=== PATIENT | female | born 1960 | race Caucasian/White ===

== ENCOUNTER 2016-06-19 20:10 | Emergency (ER) | payer OTHER ==
--- NOTE | ~2016-06-19 | CT4 ---
[facility] A Service of [facility] RADIOLOGY TEXT RESULTS PATIENT: GERTRUDE REILLY LOCATION: SED : 61 UNIT #: [id number] AGE: [address]: Devon Regalado MD SEX: F ORDER DR: [id number] [place] [id number] E MR#: [id number] Acc #: [id number] NAME: GERTRUDE REILLY : 1960 SEX: F STUDY DATE/TIME: 06/19/2016 21:45 UNIT: SED ROOM: STUDY DESCRIPTION: CT Abd and Pelv Wo Cont Attending Physician: Devon Regalado M.D. Ordering Physician: Devon Regalado M.D. Primary Care Physician: Wen Omer M.D. MEDICAL IMAGING REPORT This report is preliminary unless electronic signature is present. EXAM CT abdomen and pelvis, noncontrast, 06/19/2016 HISTORY 56-year-old female in the ED complaining of 6-week history of flank pain. Elevated white blood cell count is noted. TECHNIQUE CT examination of the abdomen and pelvis without oral or IV contrast using kidney stone protocol. This CT exam was performed with one or more of the following radiation dose reduction techniques: automatic exposure control, adjustment of mA and/or kV according to patient size, and iterative reconstruction. COMPARISON CT stone study, 09/03/2015. FINDINGS ABDOMEN: Both kidneys, both ureters and the urinary bladder are normal in noncontrast CT appearance. No visible nephrolithiasis or evidence of urinary obstruction. Cholecystectomy. No bile duct dilatation. Liver, pancreas and spleen are within normal limits. There is a moderately large upper right paramedian ventral hernia containing omental fat. This has increased slightly in size since 06/04/2015. Mild scattered sigmoid diverticulosis. Small bowel and colon are otherwise normal in caliber and appearance, as imaged. The appendix is [facility] RADIOLOGY TEXT RESULTS PATIENT: GERTRUDE REILLY LOCATION: SED : 61 UNIT #: [id number] AGE: [address]: Devon Regalado MD SEX: F ORDER DR: normal. Normal-caliber abdominal aorta. PELVIS FINDINGS: Hysterectomy. Bladder and rectum are negative. IMPRESSION 1. No acute abnormality within the abdomen or pelvis. No visible nephrolithiasis or evidence of urinary obstruction. 2. Cholecystectomy and hysterectomy. 3. Mild sigmoid diverticulosis. Normal appendix. 4. Moderately large right upper quadrant paramedian abdominal wall hernia containing abdominal fat and omental vessels. This has enlarged since the previous study of 09/03/2015. Dictated by... Temo Perla M.D. THIS IS AN ELECTRONICALLY VERIFIED REPORT Temo Perla M.D. at 06/20/2016 5:58 AM CLARENCE/manolo TD: 06/19/2016 23:28 JOB #: [id number] MEDICAL IMAGING REPORT Page 1 of 1
--- NOTE | ~2016-06-19 | CR63 ---
[facility] A Service [facility] RADIOLOGY TEXT RESULTS PATIENT: GERTRUDE REILLY LOCATION: SED : 61 UNIT #: [id number] AGE: [address]: Devon Regalado MD SEX: F ORDER DR: [id number] [place] [id number] E MR#: [id number] Acc #: [id number] NAME: GERTRUDE REILLY : 1960 SEX: F STUDY DATE/TIME: 06/19/2016 20:32 UNIT: SED ROOM: STUDY DESCRIPTION: CR Chest 2 View Attending Physician: Devon Regalado M.D. Ordering Physician: Devon Regalado M.D. Primary Care Physician: Wen Omer M.D. MEDICAL IMAGING REPORT This report is preliminary unless electronic signature is present. EXAM Chest x-ray 2 views HISTORY Cough, short of air, fever, headache right-sided, starting today, patient smokes a half pack a day. COMMENT 2 views of the chest are reviewed. COMPARISON 02/12/2016 FINDINGS The patient has had a previous cholecystectomy. No pleural effusion. Mild thoracic degenerative changes. Heart size normal. Interval improvement in the appearance of the chest since prior with apparent resolution. Congestive failure seen on the previous study. No acute-appearing congestive failure on current study. No acute appearing parenchymal infiltrate or pneumothorax. Probably some mild interstitial edema at the right greater than left lung base. IMPRESSION Suspect some mild basilar interstitial edema, right greater than left. Otherwise, no active disease is seen in the chest. On comparison to a film from 02/12/2016, since that time, congestive failure has resolved. Dictated by... [facility] A Service [facility] RADIOLOGY TEXT RESULTS PATIENT: GERTRUDE REILLY LOCATION: SED : 61 UNIT #: [id number] AGE: [address]: Devon Regalado MD SEX: F ORDER DR: Ingrid A. Crecelius, M.D. THIS IS AN ELECTRONICALLY VERIFIED REPORT Ingrid Fraga M.D. at 06/19/2016 10:57 PM SAC/to TD: 06/19/2016 22:47 JOB #: [id number] MEDICAL IMAGING REPORT Page 1 of 1
[~2016-06-19 20:10] MED LIST: BACTRIM DS TABL1 TA1 PO; CELEXA10 MG PO; CELEXA20 MG PO; FLAGYL PO; FLEXERIL10 MG PO; HYCODAN60 ML 5MG/ PO; HYDROCODON-ACE1 EAC7 PO; HYDROCODON-ACE118 ML PO; HYDROCODONE-APA1 T61 PO; MACROBID100 M1 PO; MOBIC PO; NAPROXEN PO; NITROFURANTOIN100 M3 PO; NO MEDICATIONS; PHENERGAN25 M1 PO; PREDNISONE PO; PREMARIN VAG CR45 GM MC; PRIMIDONE50 MG PO; SUDAFED; TOPAMAX PO; VAGIFEM10 MCG; VICODIN 5-3001 EACH PO; ZYRTEC10 M1 PO
[2016-06-19 20:50] LABS: INFLUENZA A NEG (NEG); INFLUENZA B NEG (NEG)
[2016-06-19 21:02] LABS: BASOPHIL% 0.3 % (0-2.5); DIFF IND NO; EOSINOPHIL# 0.2 X10e3 (0-0.7); EOSINOPHIL% 1.1 % (0.0-7.0); HEMATOCRIT 43.3 % (35.0-45.0); HEMOGLOBIN 14.4 gm/dL (12.0-16.0); LYMPHOCYTE# 0.4 X10e3 (1.0-3.5); LYMPHOCYTE% 2.8 % (17.0-45.0); MEAN CELL VOLUME 87.3 FL (83-96); MEAN CORPUSCULAR HGB CONC 33.3 g/dL (30-36); MEAN PLATELET VOLUME 7.7 FL (6.5-11.5); MONOCYTE# 0.4 X10e3 (0-1.0); MONOCYTE% 2.8 % (3.0-12.0); NEUTROPHIL# 13.6 X10e3 (1.5-7.1); PLATELET COUNT 345 X10e3 (140-420); RED BLOOD COUNT 4.96 X10e (3.90-5.30); WHITE BLOOD COUNT 14.6 X10e3 (4.0-10.5)
[2016-06-19 21:05] LABS: ALBUMIN SERUM 3.9 g/dL (3.5-5.0); BILIRUBIN, DIRECT 0.1 mg/dL (0.0-0.2); BILIRUBIN,INDIRECT 0.4 mg/dL (0.0-0.9); BILIRUBIN,TOTAL 0.5 mg/dL (0.2-2.0); BUN/CREATININE RATIO 15.55; CALCIUM SERUM 9.1 mg/dL (8.4-10.2); CREATININE SERUM 0.9 mg/dL (0.6-1.4); POTASSIUM 4.2 mmol/L (3.5-5.1); URINE SOURCE CLEAN CATCH
[2016-06-19 21:07] LABS: URINE APPEARANCE HAZY; URINE BILIRUBIN NEG (NEG); URINE BLOOD TRACE-LYSED (NEG); URINE COLOR YELLOW; URINE GLUCOSE NEG (NORM); URINE KETONE TRACE (NEG); URINE LEUKOCYTE ESTERASE TRACE (NEG); URINE NITRATE NEG (NEG); URINE PROTEIN TRACE (NEG); URINE UROBILINOGEN 0.2 MG/DL (NORM)
[2016-06-19 21:16] LABS: CULTURE INDICATED? NO; MICRO INDICATED? YES; URINE BACTERIA NEG (NEG); URINE SQUAMOUS EPITHELIAL CELL MANY /[HPF]
[2016-06-19 21:17] LABS: URINE MUCUS PRESENT
== END 2016-06-19 23:26 | disposition home or self-care (01) ==
LOC: SED 20:10
PROVIDERS: Emergency Medicine
DX: M54.9 Dorsalgia, unspecified (principal); R50.9 Fever, unspecified; F41.9 Anxiety disorder, unspecified; F17.200 Nicotine dependence, unspecified, uncomplicated; Z87.19 Personal history of other diseases of the digestive system; Z86.79 Personal history of other diseases of the circulatory system; Z90.49 Acquired absence of other specified parts of digestive tract; Z90.710 Acquired absence of both cervix and uterus
CPT/HCPCS: 36415; 71020; 74176; 80048; 80076; 81003; 82550; 83605; 85025; 87040; 87651; 87804; 96361; 96374; 96375; 99284; J0780; J1200; J2270

== ENCOUNTER 2016-06-25 16:40 | Observation (INO) | payer OTHER ==
--- NOTE | ~2016-06-25 | CO ---
Unit #: [id number] #: [id number] Patient: GERTRUDE REILLY [id number] [address] [place], [place] [address] [id number] I MR#: [id number] NAME: GERTRUDE REILLY ROOM: 308 Age: 56 Sex: F Admission Date: 06/26/2016 : 1960 Attending Physician: Nathan Lofton M.D. Primary Care Physician: Wen Omer M.D. Consultation Date: 06/26/2016 CONSULTATION REPORT REASON FOR CONSULT Shortness of breath. HISTORY OF PRESENT ILLNESS This is a pleasant 56-year-old female with extensive history of smoking recently down to one pack every 10 days, emphysema, and essential tremors, who presented to the emergency room at [facility] with shortness of breath and hypokalemia. Patient stated that she has been sick for the last three weeks with different kinds of infection. She stated that she had a UTI, and she was on nitrofurantoin, and then recently she was seen at an urgent care center where she was told that she had pneumonia, and she was placed on some antibiotics that she could not remember the name of. Patient had a fever, chills, and cough last week. However, currently she is just having some rash and shortness of breath but no fever. Upon presentation, patient had a D-dimer that was elevated, but she is allergic to IV dye, so a CT angiogram was not done immediately. Patient received IV steroids for contrast preparation, and she just had her CT angiogram which was negative for pulmonary embolus, and there were no signs of acute infiltrate. However, she has extensive emphysema. PAST MEDICAL HISTORY 1. Hiatal hernia. 2. Intracranial aneurysm. 3. Degenerative joint disease. 4. Essential tremor. 5. Chronic headache. PAST SURGICAL HISTORY 1. Cholecystectomy. 2. Hysterectomy. 3. Tonsillectomy. ALLERGIES Ultram, Elavil, Zofran, IV dye, and radioactive nucleotide for stress test. HOME MEDICATIONS 1. Primidone. 2. Zyrtec. 3. Topamax. 4. Tylenol. Unit #: [id number] #: [id number] Patient: GERTRUDE REILLY FAMILY HISTORY Coronary artery disease and hypertension. SOCIAL HISTORY Patient lives with her . She smokes currently one pack every 10 days but she has an extensive history of smoking. No history of alcohol or drug abuse. REVIEW OF SYSTEMS A 12-point review of systems was obtained and was negative except for what was mentioned in the History of Present Illness. PHYSICAL EXAMINATION GENERAL: Patient is pleasant but slightly anxious. VITAL SIGNS: Temperature 98.1, pulse 79, respiratory rate 20, O2 saturation 97% on room air, and blood pressure 131/71. HEENT: Atraumatic, normocephalic. PERRLA. EOMI. NECK: Supple. No JVD. No lymphadenopathy. CHEST: Decreased breath sounds bilaterally but no wheezing or crackles. HEART: S1 and S2. No murmur, gallops, or rubs. ABDOMEN: Soft, nontender. Bowel sounds are positive. No hepatosplenomegaly. EXTREMITIES: No edema or cyanosis. SKIN: No rashes. CENTRAL NERVOUS SYSTEM: Patient has essential tremor but no focal motor/sensory deficit. DIAGNOSTIC STUDIES LABORATORY: Creatinine 0.7 and chloride 114. White blood count 11.9 and hemoglobin 11.3. IMAGING: CT angiogram showed extensive emphysema but no acute PE or pneumonia. ASSESSMENT 1. Dyspnea. 2. Emphysema/chronic obstructive pulmonary disease. 3. Questionable drug allergy. 4. Chronic anemia. 5. Degenerative joint disease. PLAN 1. Patient is hemodynamically stable on room air. 2. Lower extremity Doppler and CT angiogram excluded any possibility of DVT/PE. 3. Her shortness of breath probably is multifactorial related to chronic emphysema/COPD exacerbated probably by a drug reaction. 4. Will continue patient on bronchodilator. 5. Gentle IV hydration. 6. DVT prophylaxis. I would like to thank Dr. Lofton for allowing me to be part of this patient's care. Dictated by... Karla Ahuja M.D. EA/laura Unit #: [id number] #: [id number] Patient: GERTRUDE REILLY TD: 06/26/2016 20:14 JOB #: [id number] CONSULTATION REPORT Page 1 of 1 X KARLA SUH MD CONSULTATION REPORT
--- NOTE | ~2016-06-25 | HP ---
Unit #: [id number] #: [id number] Patient: GERTRUDE REILLY [id number] [address] [place], [place] [address] [id number] I MR#: [id number] NAME: GERTRUDE REILLY. ROOM: 308 Age: 56 Sex: F Admission Date: 06/25/2016 : 1960 Attending Physician: Mavis Will M.D. Primary Care Physician: Wen Omer M.D. HISTORY AND PHYSICAL REVISED REPORT CHIEF COMPLAINT Shortness of breath and hypokalemia with weakness. HISTORY This pleasant 56-year-old female with essential tremor, DJD, chronic pain, intracranial aneurysm, was transferred from [facility] emergency department for shortness of breath and hypokalemia. The patient states that she was in her usual state of health until three weeks prior to admission when she developed weakness and fatigue. She saw a primary care physician who treated her for a urinary tract infection with Macrodantin. Over the past week notes increasing shortness of breath with exertion but no chest pain. She was thought to have a right lower lobe pneumonia per her report and was placed on antibiotics. Has been experiencing some low grade temperatures and chills, swelling of hands and feet, and reddish appearing stool. Went back to [facility] ER yesterday. A d-dimer was obtained and was elevated. The patient has a IV dye contrast allergy. She states that she is also allergic to radioactive nucleotides, almost after her stress test last Spring at [facility] after a stress test at [facility]. She has received IV dye after premedication for 24 hours with steroids. At this time she declines enteric treatment of a blood thinner unless it is needed. The shortness of breath is with exertion, but she was having a little bit of wheezing last week but that has improved and she denies chest pain with the above, orthopnea or PND. PAST MEDICAL HISTORY 1. Hiatal hernia. 2. Intracranial aneurysm admitted to [facility]. 3. DJD. 4. Essential tremor. 5. Chronic leg and feet pain on Topamax. 6. DJD and back pain which was recently worse. 7. Chronic headache. 8. Cholecystectomy. 9. Hysterectomy. 10. Tonsillectomy. ALLERGIES Ultram, Elavil, Zofran, IV dye, radioactive nucleotide for stress test. Unit #: [id number] #: [id number] Patient: GERTRUDE REILLY HOME MEDICATIONS Primidone, 50 mg p.o.q.h.s.; Zyrtec 10 mg daily as needed; Topamax 25 mg b.i.d.; [place] 7.5 t.i.d. as needed. She uses Premarin vaginal tablets twice a week and Sudafed. FAMILY HISTORY Positive for CAD and hypertension. SOCIAL HISTORY The patient lives with her and smokes 1/2 pack per day of tobacco and does not drink alcohol. REVIEW OF SYSTEMS Notable for weakness, fatigue, and shortness of breath with exertion, hiatal hernia, intracranial aneurysms, chronic headache, increase in back pain, arthritis, essential tremor, chronic foot pain, negative stress test last year, cholecystectomy, hysterectomy, tonsillectomy, tobacco abuse, low grade temperatures. All other systems were reviewed and are negative. PHYSICAL EXAMINATION GENERAL: Pleasant 56-year-old female currently in no acute distress. VITAL SIGNS: Temperature 98.4, pulse 84, respirations 20, O2 saturations 97% on room air, blood pressure 137/78. HEENT: Eyes - PERRLA. Extraocular muscles are intact. Pharynx is benign. NECK: Supple without adenopathy or thyromegaly. CHEST: Clear. Patient had some tenderness over the upper thoracic lower spine and paraspinous muscles. CARDIAC: Normal S1 and S2 without S3, S4 or murmur. ABDOMEN: Bowel sounds are present. No hepatosplenomegaly, tenderness, or masses. RECTAL: Brown stool in the rectal vault. Hemoccult negative. EXTREMITIES: With minimal edema. Pedal pulses are present. Negative Homans sign. Some erythema noted over the toes. NEUROLOGIC: Patient is awake, alert, and oriented. Cranial nerves are intact. Equal strength throughout. DIAGNOSTIC STUDIES LABORATORY STUDIES: Hematocrit 36.5, white blood count is 11.6, normal platelet count. Cardiac markers negative. D-dimer elevated. SMA 12 - potassium 3.6, albumin 2.9, alk phos 173, lactic acid normal. Urinalysis is negative. IMAGING STUDIES: CT of the chest without contrast - COPD, atelectasis in lung bases, unchanged 7 mm noncalcified right middle lung nodule. Linear noncalcified nodule right upper lobe unchanged. CARDIOLOGY STUDIES: EKG - normal sinus rhythm rate 80, normal appearing. ASSESSMENT 1. Complaints of dyspnea with exertion. Patient has underlying COPD. He was found to have elevated D-dimer at [facility] ER, obviously need to rule out PE. 2. Weakness and fatigue. 3. Intracranial aneurysm. 4. Chronic back pain and headaches. 5. Hypokalemia. 6. Possible blood in stool but patient is heme negative currently on Unit #: [id number] #: [id number] Patient: GERTRUDE REILLY exam, although there is no stool in the rectal vault. 7. Essential tremor. 8. Reporting negative cardiac stress test last year at [facility]. 9. Allergy to IV dye and allergic to radioactive nucleotides with stress test. 10. Hypokalemia. 11. Tobacco abuse. PLANS 1. Premedicated with prednisone and Benadryl to obtain CTA of the chest. I did offer the patient a V/Q scan but she declines given that it is a nuclear scan. 2. Check venous Dopplers of the legs. 3. Check thyroid function test, B12 level. Blood cultures are pending. Will check sed rate as well. 4. Replace potassium and check magnesium. 5. Recheck stool for Hemoccult. 6. Old records. 7. I did offer the patient low dose heparin pending CT scan but she decline at this point unless absolutely needed. 8. Combivent. 9. Further workup and consultants depending on above. 10. Will check a BNP and cardiac enzymes. *Faxed to Dr. Will's office on 06/26/16 for medication verification. cd Dictated by Mavis Will M.D. AML/ts TD: 06/26/2016 05:05 JOB #: [id number] HISTORY AND PHYSICAL Page 1 of 1 X Mavis Will MD X HISTORY AND PHYSICAL
--- NOTE | ~2016-06-25 | CT57 ---
[facility] A Service of [facility] RADIOLOGY TEXT RESULTS PATIENT: GERTRUDE REILLY LOCATION: [facility] 308-01 : 62 UNIT #: [id number] AGE: [address]: Nahtan Lofton MD SEX: F ORDER DR: [id number] [address] [address] [id number] E MR#: [id number] Acc #: [id number] NAME: GERTRUDE REILLY. : 1960 SEX: F STUDY DATE/TIME: 06/25/2016 16:47 UNIT: SED ROOM: STUDY DESCRIPTION: CT Chest Wo Cont Attending Physician: Dieter Duaret M.D. Ordering Physician: Fernando Velasco M.D. Primary Care Physician: Wen Omer M.D. MEDICAL IMAGING REPORT This report is preliminary unless electronic signature is present. EXAM CT of the chest. DATE OF EXAM 07/03/2016 HISTORY Short of air, upper abdomen pain since Friday, when here for same. Hand/foot swelling. Back pain, spine shooting 2 days. Dizzy. Gallbladder, TA, hysterectomy. TECHNIQUE CT of the chest performed without administration of intravenous contrast. This CT exam was performed with one or more of the following radiation dose reduction techniques: automatic exposure control, adjustment of mA and/or kV according to patient size, and iterative reconstruction. COMPARISON 09/03/2015 FINDINGS Thyroid unremarkable. No axillary, mediastinal or hilar adenopathy. Small and stable nodes in these regions. Heart normal in size. No pleural effusions. Visualized portions of liver unremarkable. Status post cholecystectomy. No biliary ductal dilatation is seen. Spleen, pancreas, adrenal glands, upper renal poles, esophagus, visualized stomach, small bowel and colon unremarkable. Pulmonary parenchyma shows extensive centrilobular emphysema. Tiny subcentimeter nodule adjacent to the anterior right heart border in the medial anterior right upper lobe unchanged from prior studies and favored to represent an area of somewhat linear scarring. 7 mm subpleural nodule in the lateral right middle lobe unchanged from the study dating to 2011, [facility] A Service of [facility] RADIOLOGY TEXT RESULTS PATIENT: GERTRUDE REILLY LOCATION: A 308-01 : [birth year] UNIT #: [id number] AGE: [address]: Nathan Lofton MD SEX: F ORDER DR: felt to be benign in nature. Minimal dependent atelectasis lung bases. No dense airspace disease. No suspicious nodule. Atherosclerotic arterial calcifications. The bony structures show no acute abnormality. IMPRESSION 1. Extensive centrilobular emphysema throughout the lungs. There is no evidence of acute infectious or inflammatory disease. 2. Some areas of dependent atelectasis at lung bases. 3. 7 mm noncalcified subpleural pulmonary nodule lateral right middle lobe. No change from studies dating to 2011 and felt to be benign in nature. There is a linear noncalcified nodule in the anteromedial right upper lobe adjacent to the anterior right heart measuring about 3-4 mm in diameter. No change from August 2015, though more conspicuous on the current examination. I believe it was faintly present in 2012 as well. It is felt to be benign in nature. 4. No acute abnormality seen in the upper abdomen. Postoperative changes of prior cholecystectomy. Dictated by... Devon Frank M.D. THIS IS AN ELECTRONICALLY VERIFIED REPORT Devon Frank M.D. at 06/26/2016 6:26 PM Logan TD: 06/25/2016 20:30 JOB #: [id number] MEDICAL IMAGING REPORT Page 1 of 1
--- NOTE | ~2016-06-25 | DS ---
Unit #: [id number] #: [id number] Patient: GERTRUDE REILLY [id number] [address] [place], [place] [address] [id number] I MR#: [id number] NAME: GERTRUDE REILLY. ROOM: 308 Age: 56 Sex: F Admission Date: 06/26/2016 : 1960 Discharge Date: 06/27/2016 Attending Physician: Nathan Lofton M.D. Primary Care Physician: Wen Omer M.D. DISCHARGE SUMMARY ADMITTED DIAGNOSES 1. Acute hypoxic respiratory failure. 2. Hypokalemia. HISTORY OF PRESENT ILLNESS The patient is a 56-year-old lady with a past medical history of degenerative joint disease, chronic pain, tremor, intracranial aneurysm which she mentions repaired. She presented to [facility] emergency room with a chief complaint of shortness of breath. Her d-dimer was elevated up to 500 when she initially presented to the hospital. HOSPITAL COURSE She refused any anticoagulation. She was allergic to IV contrast dye. She was premedicated. Dr. Rad Ahuja of pulmonary was consulted. The CT angiogram of the chest came back negative for pneumonia or PE. It showed extensive emphysematous changes. She is known smoker. I spoke with her at length and counseled her to quit smoking. Her potassium on initial hospitalization was 2.4. It was replaced and is 3.9 today. I am requesting her to follow up with her primary care physician and get a repeat BMP done in three days. She is doing clinically better and she will be discharged home. PHYSICAL EXAMINATION VITALS: Temperature 98.4, pulse rate 95, respiratory rate 18, blood pressure 136/78. GENERAL: Alert and oriented times three, lying in bed in no acute distress. HEENT: Normocephalic, atraumatic. No icterus. Pupils equally round and reactive to light and accommodation. Extraocular muscles intact. NECK: Supple. No jugular venous distension. HEART: S1 and S2. Regular rhythm. CHEST: Bilateral equal entry, clear to auscultation. ABDOMEN: Soft and nontender. EXTREMITIES: No edema. Normal breath sounds. DISCHARGE MEDICATIONS 1. Topamax 25 mg b.i.d. 2. Primidone 50 mg at bedtime. 3. Zyrtec 10 mg p.o. p.r.n. 4. Hydrocodone/Tylenol 7.5/325 mg 1 tablet p.o. t.i.d. p.r.n. pain. We are not giving any new prescription. She will get her own narcotics from her primary care physician. 5. KCL 10 mEq p.o. daily for 3 days more. I am requesting her to get a repeat BMP. Unit #: [id number] #: [id number] Patient: GERTRUDE REILLY 6. Will also give albuterol Proventil 90 mcg 1-2 puffs q.4-6 h. p.r.n. shortness of breath. Total time spent in her care 35 minutes. Dictated by... Salome Zambrano TD: 06/29/2016 10:37 JOB #: [id number] DISCHARGE SUMMARY Page 1 of 1 X X DISCHARGE SUMMARY
--- NOTE | ~2016-06-25 | CT16 ---
[facility] A Service of [facility] RADIOLOGY TEXT RESULTS PATIENT: GERTRUDE REILLY LOCATION: [facility] 308- : 62 UNIT #: [id number] AGE: [address]: Nathan Lofton MD SEX: F ORDER DR: [id number] [facility] [address]. [place], [place] [address] [id number] I MR#: [id number] Acc #: [id number] NAME: GERTRUDE REILLY. : 1960 SEX: F STUDY DATE/TIME: 06/26/2016 16:28 UNIT: [address] ROOM: [facility] STUDY DESCRIPTION: CT Angio Chest for PE Attending Physician: Nathan Lofton M.D. Ordering Physician: Mavis Will M.D. Primary Care Physician: Wen Omer M.D. MEDICAL IMAGING REPORT This report is preliminary unless electronic signature is present EXAM Chest CTA 06/26/2016 INDICATIONS Weakness and fatigue for 3 weeks with shortness of air for 1 week. TECHNIQUE Axial images were obtained through the chest following IV contrast administration. 3-D reformats were obtained. This CT exam was performed with one or more of the following radiation dose reduction techniques: automatic exposure control, adjustment of mA and/or kV according to patient size, and iterative reconstruction. COMPARISON STUDIES Comparison is made with chest CT from 06/25/2016. FINDINGS There is no pulmonary embolism or aortic dissection. No pleural or pericardial effusion. No adenopathy. There is emphysema. The lungs are not significantly changed from yesterday. No acute infiltrates. Upper abdomen demonstrates changes of cholecystectomy. Atherosclerotic disease is present as well. IMPRESSION 1. No pulmonary embolism or aortic dissection. 2. No acute findings in the chest. No significant change from yesterday. 3. Emphysema. Dictated by... Chente Newsome Jr., M.D. THIS IS AN ELECTRONICALLY VERIFIED REPORT [facility] A Service of [facility] RADIOLOGY TEXT RESULTS PATIENT: GERTRUDE REILLY LOCATION: [facility] 308-01 : [birth year] UNIT #: [id number] AGE: [address]: Nathan Lofton MD SEX: F ORDER DR: Chente Newsome Jr., M.D. at 06/26/2016 11:03 PM MISTY/reese TD: 06/26/2016 18:02 JOB #: [id number] MEDICAL IMAGING REPORT Page 1 of 1 COPY
--- NOTE | ~2016-06-25 | US84 ---
[id number] [facility] [address]. [place], [place] [address] [id number] I MR#: [id number] Acc #: [id number] NAME: GERTRUDE REILLY : 1960 SEX: F STUDY DATE/TIME: 06/26/2016 7:34 UNIT: C3A PCU ROOM: 308 STUDY DESCRIPTION: US LE Veins Complete Kaleb Stdy Attending Physician: Nathan Lofton M.D. Ordering Physician: Mavis Will M.D. Primary Care Physician: Wen Omer M.D. MEDICAL IMAGING REPORT This report is preliminary unless electronic signature is present EXAM Bilateral lower extremity venous Doppler INDICATIONS Bilateral leg swelling for the past 4 days. PROCEDURE [place]-scale, color Doppler, and spectral imaging deep veins of the right and left leg. COMPARISON None FINDINGS Deep veins in the right and left leg compress normally, show normal color Doppler and spectral characteristics. IMPRESSION No evidence for DVT in the right or left leg. Dictated by... Cayden Florez M.D. THIS IS AN ELECTRONICALLY VERIFIED REPORT Cayden Florze M.D. at 06/27/2016 7:21 AM JEAN/elier TD: 06/26/2016 12:44 JOB #: [id number] MEDICAL IMAGING REPORT Page 1 of 1 COPY
--- NOTE | ~2016-06-25 | EKG ---
PATIENT: GERTRUDE REILLY UNIT #: [id number] Ventricular Rate: 79 BPM Atrial Rate: 79 BPM P-R Interval: 150 ms QRS Duration: 80 ms Q-T Interval: 376 ms QTC Calculation(Bezet): 431 ms P [place]: 56 degrees Calculated R [place]: 72 degrees Calculated T [place]: 37 degrees Diagnosis Line: Normal sinus rhythm Diagnosis Line: Normal ECG Diagnosis Line: When compared with ECG of 12-FEB-2016 09:00, Diagnosis Line: No significant change was found Diagnosis Line: Confirmed by CAMMY WADE MD ([id number]) on 06/30/2016 Diagnosis Line: 3:30:46 PM INTERPRETING MD: MAURO SALDANA
[2016-06-25 17:25] LABS: BASOPHIL# 0.1 X10e3 (0-0.3); BASOPHIL% 1.2 % (0-2.5); EOSINOPHIL% 25.9 % (0.0-7.0); HEMATOCRIT 36.5 % (35.0-45.0); HEMOGLOBIN 12.3 gm/dL (12.0-16.0); LYMPHOCYTE# 2.6 X10e3 (1.0-3.5); LYMPHOCYTE% 22.2 % (17.0-45.0); MEAN CELL VOLUME 86.8 FL (83-96); MEAN CORPUSCULAR HEMOGLOBIN 29.2 PG (28-34); MEAN CORPUSCULAR HGB CONC 33.6 g/dL (30-36); MEAN PLATELET VOLUME 7.5 FL (6.5-11.5); MONOCYTE# 0.7 X10e3 (0-1.0); MONOCYTE% 6.4 % (3.0-12.0); NEUTROPHIL# 5.2 X10e3 (1.5-7.1); NEUTROPHIL% 44.3 % (40-75); PLATELET COUNT 349 X10e3 (140-420); RED BLOOD COUNT 4.21 X10e (3.90-5.30); WHITE BLOOD COUNT 11.6 X10e3 (4.0-10.5)
[2016-06-25 17:35] LABS: POC - CKMB <1.0 ng/mL (0.0-7.9); POC - TROPONIN <0.05 ng/mL (<=0.05)
[2016-06-25 17:41] LABS: DIFF IND YES
[2016-06-25 17:47] LABS: URINE SOURCE CLEAN CATCH
[2016-06-25 17:53] LABS: URINE APPEARANCE CLEAR; URINE BILIRUBIN NEG (NEG); URINE BLOOD TRACE-INTACT (NEG); URINE COLOR YELLOW; URINE GLUCOSE NEG (NORM); URINE KETONE NEG (NEG); URINE LEUKOCYTE ESTERASE NEG (NEG); URINE NITRATE NEG (NEG); URINE PROTEIN NEG (NEG); URINE SPECIFIC GRAVITY <=1.005 (1.003-1.035); URINE UROBILINOGEN 0.2 MG/DL (NORM)
[2016-06-25 17:54] LABS: MICRO INDICATED? YES
[2016-06-25 18:11] LABS: PLATELET ESTIMATE NORMAL (NORMAL); RBC NORMAL YES
[2016-06-25 18:12] LABS: CULTURE INDICATED? NO; URINE BACTERIA NEG (NEG); URINE RBC 0-2 /[HPF] (0-2); URINE WBC 0-2 /[HPF] (0-5)
[2016-06-25 18:15] LABS: ALBUMIN SERUM 2.9 g/dL (3.5-5.0); BILIRUBIN, DIRECT 0.1 mg/dL (0.0-0.2); BILIRUBIN,TOTAL 0.1 mg/dL (0.2-2.0); CALCIUM SERUM 8.7 mg/dL (8.4-10.2); CREATININE SERUM 0.7 mg/dL (0.6-1.4); GLOM FILT RATE Estimated 97.5 mL/min (>60); PROTEIN TOTAL SERUM 6.2 g/dL (6.0-8.3)
[2016-06-25 18:23] LABS: POTASSIUM 2.6 mmol/L (3.5-5.1)
[2016-06-25] MEDS ORDERED: [UNRECOGNIZED DRUG - OTHER] (23:29)
[2016-06-25] MEDS ORDERED: SUDAFED (23:30)
[2016-06-26 06:18] LABS: BASOPHIL# 0.1 X10e3 (0-0.3); BASOPHIL% 0.5 % (0-2.5); EOSINOPHIL# 2.9 X10e3 (0-0.7); EOSINOPHIL% 24.7 % (0.0-7.0); HEMATOCRIT 34.5 % (35.0-45.0); HEMOGLOBIN 11.3 gm/dL (12.0-16.0); LYMPHOCYTE# 1.7 X10e3 (1.0-3.5); LYMPHOCYTE% 14.4 % (17.0-45.0); MEAN CELL VOLUME 86.4 FL (83-96); MEAN CORPUSCULAR HEMOGLOBIN 28.4 PG (28-34); MEAN CORPUSCULAR HGB CONC 32.8 g/dL (30-36); MEAN PLATELET VOLUME 7.7 FL (6.5-11.5); MONOCYTE# 0.5 X10e3 (0-1.0); MONOCYTE% 4.3 % (3.0-12.0); NEUTROPHIL# 6.6 X10e3 (1.5-7.1); NEUTROPHIL% 56.1 % (40-75); PLATELET COUNT 323 X10e3 (140-420); RED BLOOD COUNT 3.99 X10e (3.90-5.30); WHITE BLOOD COUNT 11.9 X10e3 (4.0-10.5)
[2016-06-26 06:20] LABS: DIFF IND NO
[2016-06-26 06:43] LABS: BUN/CREATININE RATIO 11.42; CALCIUM SERUM 8.5 mg/dL (8.4-10.2); CREATININE SERUM 0.7 mg/dL (0.6-1.4); GLOM FILT RATE Estimated 97.5 mL/min (>60); POTASSIUM 3.4 mmol/L (3.5-5.1); THYROID STIMULATING HORMONE 1.81 uIU/ml (0.34-5.60)
[2016-06-26 06:50] LABS: FREE THYROXIN (T4) 0.87 ng/dL (0.58-1.64)
[2016-06-26 14:31] LABS: ARTERIAL BLD GAS O2 SATURATION 95.6 % (90.0-100.0); ARTERIAL BLOOD GAS CARBOXY HB 0.9 %sat (0.0-9.0); ARTERIAL BLOOD GAS HCO3 20.6 mmol/L; ARTERIAL BLOOD GAS MET HB 1.1 %sat (0.0-2.0); ARTERIAL BLOOD GAS PCO2 28.8 mmHg (35.0-45.0); ARTERIAL BLOOD GAS PO2 88.6 mmHg (80.0-100); ARTERIAL BLOOD GAS pH 7.463 (7.350-7.450)
[2016-06-26 14:32] LABS: ARTERIAL BLOOD GAS ALLEN TEST NORMAL; ARTERIAL BLOOD GAS ART SITE RIGHT RADIAL; ARTERIAL DRAW? YES
[2016-06-27 06:15] LABS: HEMATOCRIT 31.7 % (35.0-45.0); HEMOGLOBIN 10.4 gm/dL (12.0-16.0); MEAN CELL VOLUME 87.4 FL (83-96); MEAN CORPUSCULAR HEMOGLOBIN 28.8 PG (28-34); MEAN CORPUSCULAR HGB CONC 32.9 g/dL (30-36); MEAN PLATELET VOLUME 7.2 FL (6.5-11.5); RED BLOOD COUNT 3.63 X10e (3.90-5.30); WHITE BLOOD COUNT 12.1 X10e3 (4.0-10.5)
[2016-06-27 07:24] LABS: CREATININE SERUM 0.6 mg/dL (0.6-1.4); GLOM FILT RATE Estimated 102.6 mL/min (>60); POTASSIUM 3.9 mmol/L (3.5-5.1)
[2016-06-27] MEDS ORDERED: ALBUTEROL MININEB INH ×2 (15:23→15:35)
[2016-06-27] MEDS ORDERED: NICOTINE TRANSD14 MG TOP (15:24)
[2016-06-27] MEDS ORDERED: FLORASTOR PO (15:27)
[2016-06-27] MEDS ORDERED: TYL325 PO (15:31)
== END 2016-06-27 16:07 | disposition home or self-care (01) ==
LOC: SED 16:40 → C3A PCU 06-26 01:20
PROVIDERS: Emergency Medicine; Internal Medicine
DX: J96.01 Acute respiratory failure with hypoxia (principal); E87.6 Hypokalemia; J44.9 Chronic obstructive pulmonary disease, unspecified; R53.1 Weakness; R53.83 Other fatigue; R51 Headache; M54.9 Dorsalgia, unspecified; G89.29 Other chronic pain; G25.0 Essential tremor; D64.9 Anemia, unspecified; M19.90 Unspecified osteoarthritis, unspecified site; Z91.041 Radiographic dye allergy status; F17.200 Nicotine dependence, unspecified, uncomplicated; Z82.49 Family history of ischemic heart disease and other diseases of the circulatory system; Z90.49 Acquired absence of other specified parts of digestive tract; Z90.710 Acquired absence of both cervix and uterus
CPT/HCPCS: 36600; 71250; 71275; 80048; 80076; 81003; 82274; 82550; 82553; 82607; 82803; 83605; 83735; 83880; 84439; 84443; 84484; 85025; 85027; 85379; 85652; 87040; 87493; 93005; 93306; 93970; 94640; 94760; 96361; 96374; 96375; 99285; G0378; J1170; J2550; Q9967

== ENCOUNTER → 2016-08-20 | Outpatient (CLI) | payer OTHER ==
[~2016-08-20] MED LIST changes: +ALBUTEROL MININEB INH; +FLORASTOR PO; +NICOTINE TRANSD14 MG TOP; +TYL325 PO; +[UNRECOGNIZED DRUG - OTHER]
--- NOTE | ~2016-08-20 | MR17 ---
[facility] A Service of [facility] & [facility] RADIOLOGY TEXT RESULTS PATIENT: GERTRUDE REILLY LOCATION: [facility] : 62 UNIT #: [id number] AGE: [address]: LUCILLE FLORES APRN SEX: F ORDER DR: [id number] [place] [id number] O MR#: [id number] #: [id number] NAME: GERTRUDE REILLY : 1960 SEX: F STUDY DATE/TIME: 08/20/2016 10:11 UNIT: [facility] ROOM: STUDY DESCRIPTION: MR Brain WWo Contrast Attending Physician: Lucille Flores Aprn Referring Physician: Lucille Flores Aprn Ordering Physician: Lucille Flores Aprn Primary Care Physician: Wen Omer M.D. MRI CENTER REPORT This report is preliminary unless electronic signature is present. EXAM MRI of the brain with and without. HISTORY Cerebral aneurysm, follow up pineal region cyst. Patient has chronic daily headaches, hand and finger numbness bilaterally for almost a year. TECHNIQUE MRI of the brain was performed prior to and following intravenous administration of 12 mL of MultiHance. Comparison 09/14/2015. 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 This compares to 1.1 cm AP dimension 0.6 cm SI dimension and 0.6 cm ML dimension. Allowing for differences in slice sectioning it appears to be stable. It does not result in significant mass effect upon adjacent structures and there is no hydrocephalus. Postcontrast imaging shows only mild peripheral enhancement which could be displaced pineal gland tissue. 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 MR angiography would be recommended if follow up of this structure is needed at this time. There is no Chiari-I malformation. There is no evidence for a recent ischemic insult on the diffusion series. There is no extraaxial fluid collection. There is a small amount of fluid or inflammatory change in the right mastoid air cells. The paranasal sinuses are clear. Ventricles are normal in size and configuration and the ward-white junction is well-maintained for age group. Postcontrast imaging shows no additional possible intracranial mass lesion or pathologic intracranial enhancement. There is no MRI evidence for intracranial hemorrhage. IMPRESSION 1. 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 [facility] A Service of [facility] RADIOLOGY TEXT RESULTS PATIENT: GERTRUDE REILLY LOCATION: [facility] : 62 UNIT #: [id number] AGE: [address]: LUCILLE FLORES APRN SEX: F ORDER DR: Continued follow up is recommended to long-term given size. It is likely a benign finding. There is no associated mass effect upon adjacent structures at this time. 2. 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 Routine brain MRI does not follow up this structure. If followup of the aneurysm is indicated at this time it is best assessed further with an angiographic study. Previously was evaluated with MR angiogram. Dictated by... Ingrid Fraga M.D. THIS IS AN ELECTRONICALLY VERIFIED REPORT Ingrid Fraga M.D. at 08/21/2016 7:30 AM JOSIANE/fidencio TD: 08/20/2016 23:31 JOB #: [id number] MRI CENTER REPORT Page 1 of 1
== END | disposition home or self-care (01) ==
LOC: SMRI 09:29
DX: E53.8 Deficiency of other specified B group vitamins (principal); I65.21 Occlusion and stenosis of right carotid artery
CPT/HCPCS: 70553; A9581

== ENCOUNTER 2016-10-30 09:06 | Emergency (ER) | payer OTHER ==
[2016-10-30] MEDS ORDERED: SUDAFED (09:12)
== END 2016-10-30 09:48 | disposition home or self-care (01) ==
LOC: SED 09:06
DX: J20.9 Acute bronchitis, unspecified (principal); J06.9 Acute upper respiratory infection, unspecified; F17.200 Nicotine dependence, unspecified, uncomplicated; Z91.041 Radiographic dye allergy status; Z88.8 Allergy status to other drugs, medicaments and biological substances
CPT/HCPCS: 99283